=== PATIENT | female | born 1990 | race Caucasian/White ===

== ENCOUNTER 2019-12-30 05:34 | Inpatient (IN) | payer OTHER, SELFPAY ==
[2019-12-30] VITALS (239 sets, daily range): BP systolic 67–109; BP diastolic 36–73; PULSE 25–143; TEMP 36.2–36.7; O2SAT 86–100
[2019-12-30 06:45] LABS: Basophils Absolute Auto 0.1 K/mm3 (0.0-0.1); Basophils Percent Auto 0.8 % (0.2-1.2); Eosinophils Absolute Auto 0.4 K/mm3 (0-0.3); Eosinophils Percent Auto 2.8 % (0-4.4); Hematocrit 36.7 % (37.0-47.0); Hemoglobin 12.8 g/dL (12.0-15.0); Immature Granulocyte Absolute 0.37 K/mm3 (0.00-0.031); Immature Granulocyte Percent A 2.5 % (0-0.5); Lymphocytes Absolute Auto 2.47 K/mm3 (0.9-3.2); Lymphocytes Percent Auto 16.6 % (18.3-44.2); Mean Corpuscular HGB Conc 34.9 g/dl (32-36); Mean Corpuscular Hemoglobin 31.8 pg (26-34); Mean Corpuscular Volume 91.3 fl (80-100); Mean Platelet Volume 11.7 fl (7.4-10.4); Monocytes Absolute Auto 1.6 K/mm3 (0.1-0.6); Monocytes Percent Auto 10.7 % (2.6-8.5); Neutrophils Absolute Auto 9.9 K/mm3 (1.3-6.7); Neutrophils Percent Auto 66.6 % (45.5-73.1); Platelet Count Result 207 k/mm3 (150-375); Red Blood Count 4.02 M/mm3 (4.2-5.4); Red Cell Distribution Width 12.7 % (11.5-14.5); White Blood Count 14.9 K/mm3 (4.5-10.0)
--- NOTE | 2019-12-30 06:49 | PM.IMHP ---
H&P: HPI History of Present Illness Chief complaint: Induction of Labor Narrative: Ebony Mancilla is a 29 year old female whose last menstrual period was 03/30/2019, EDC is 01/04/2020, presents at 39 weeks gestation for induction of labor. She is negative for group B strep. Her has been uncomplicated Review of Systems Review of Systems: All systems reviewed & are unremarkable except as noted in HPI and below PMFSH Family History Family History Grandparent Diabetes mellitus Social History Social History Substance use: never Spiritual care concerns: No Meds Home Medications and Allergies Home Medications Medication Instructions Recorded Confirmed Type PNV cmb#95-ferrous fumarate-FA 1 tablet PO DAILY 12/13/19 12/13/19 History [] Allergies Allergy/AdvReac Type Severity Reaction Status Date / Time No Known Allergies Allergy Verified 12/13/19 15:13 Vital Signs Vital Signs - 24 hr 12/30/19 06:25 Pulse Rate 102 H Blood Pressure 103/71 Exam Const: General: no acute distress Eyes: General: appearance normal, both eyes and all related structures Neck: Neck: supple and no JVD Thyroid: thyroid normal Resp: Effort & Inspection: normal respiratory effort Auscultation: clear to auscultation bilaterally Cardio: Rate: regular rate Rhythm: regular rhythm GI: Inspection: normal to inspection (Gravid soft uterus) : General: Yes other (Cervix 3/75/2/. Attempted a round no fluid. FHTs reassuring) Skin: General skin exam: no rashes or lesions noted Extrem: General: normal to inspection and no edema Psych: Mental Status: mental status grossly normal Affect: normal affect Assessment and Plan Additional Plan Impression: Term with favorable cervix Plan: Medical induction of labor
[2019-12-30] MEDS: LACTATED RINGERS 1,000 ML 125 ML IV CONT ×3 (06:56→20:47)
[2019-12-30] MEDS: OXYTOCIN 30 UNITS/NS 500 ML 30 UNITS/500 ML BAG IV CONT (06:58)
[2019-12-30 07:36] LABS: HIV 1/2 Ab P24 Ag Result Negative (Negative)
[2019-12-30 07:56] LABS: Rapid Plasma Reagin Non-Reactive (NonReactive)
--- NOTE | 2019-12-30 09:28 | WPDANESEPPF ---
Anes - Initial Pre Proc Eval Date/Time: 12/30/19 09:28 Surgeon: Juan A Murray MD Pre Op Diagnosis: Induction of Labor Patient Data Age: 29 Gender: F Height: Weight: Last Vital Signs Temp 36.2 C L 12/30/19 08:35 Pulse 77 12/30/19 09:16 BP 92/56 L 12/30/19 09:16 Pulse Ox 99 12/30/19 09:27 Allergies Allergy/AdvReac Type Severity Reaction Status Date / Time No Known Allergies Allergy Verified 12/13/19 15:13 Home Medications Medication Instructions Recorded Confirmed Type PNV cmb#95-ferrous fumarate-FA 1 tablet PO DAILY 12/13/19 12/13/19 History [] Laboratory Tests 12/30/19 12/30/19 12/30/19 06:38 06:38 06:38 WBC 14.9 K/mm3 H K/mm3 (4.5-10.0) RBC 4.02 M/mm3 L M/mm3 (4.2-5.4) Hgb 12.8 g/dL g/dL (12.0-15.0) Hct 36.7 % L % (37.0-47.0) MCV 91.3 fl fl (80-100) MCH 31.8 pg pg (26-34) MCHC 34.9 g/dl g/dl (32-36) RDW 12.7 % % (11.5-14.5) Plt Count 207 k/mm3 k/mm3 (150-375) MPV 11.7 fl H fl (7.4-10.4) Immature Gran % (Auto) 2.5 % H % (0-0.5) Neut % (Auto) 66.6 % % (45.5-73.1) Lymph % (Auto) 16.6 % L % (18.3-44.2) [place] % (Auto) 10.7 % H % (2.6-8.5) Eos % (Auto) 2.8 % % (0-4.4) Baso % (Auto) 0.8 % % (0.2-1.2) Lymph # (Auto) 2.47 K/mm3 K/mm3 (0.9-3.2) [place] # (Auto) 1.6 K/mm3 H K/mm3 (0.1-0.6) Eos # (Auto) 0.4 K/mm3 H K/mm3 (0-0.3) Baso # (Auto) 0.1 K/mm3 K/mm3 (0.0-0.1) Abs Immat Gran (auto) 0.37 K/mm3 H K/mm3 (0.00-0.031) Absolute Neuts (auto) 9.9 K/mm3 H K/mm3 (1.3-6.7) Absolute Nucleated RBC 0.0 K/mm3 K/mm3 (0.0-0.012) Nucleated RBC % 0.0 % % (0.0-0.2) RPR Non-reactive (NonReactive) HIV 1&2 Ab/P24 Ag 4thGn Blood Type B Positive Antibody Screen Negative 12/30/19 06:38 WBC RBC Hgb Hct MCV MCH MCHC RDW Plt Count MPV Immature Gran % (Auto) Neut % (Auto) Lymph % (Auto) [place] % (Auto) Eos % (Auto) Baso % (Auto) Lymph # (Auto) [place] # (Auto) Eos # (Auto) Baso # (Auto) Abs Immat Gran (auto) Absolute Neuts (auto) Absolute Nucleated RBC Nucleated RBC % RPR HIV 1&2 Ab/P24 Ag 4thGn Negative (Negative) Blood Type Antibody Screen Patient hx anesthesia problems: none Family hx anesthesia problems: none [facility] Family History Family History Grandparent Diabetes mellitus Social History Social History Substance use: never Spiritual care concerns: No Anes - Eval Final PreProcedure Day of Procedure 12/30/19 09:28 Patient weight: overweight Neurological: alert and oriented ASA classification: II Emergent: no Anesthetic plan: proceed Anesthesia type and monitoring: regional epidural and standard monitoring Informed Consent: The patient's anesthetic plan and its attendant risks and benefits were discussed with the patient/family/POA. Questions were solicited and answers provided to the satisfaction of the patient/family/POA.
--- NOTE | 2019-12-30 09:41 | LDADM ---
This patient, Ebony Mancilla, was admitted to Labor/Delivery/Recovery 105 on 12/30/19 at 05:34. Plans for labor, pain management and were discussed with patient. Patient/S.O. oriented to hospital policies and general routines including ID bracelet, bed and alarms, visiting hours, pain management, procedures, bathroom and other care routines, personal items, smoking policy, room service/diet and guest tray routines, infant security routines, call light, and visiting hours. Patient/S.O. are encouraged to report perceived risks to care and to ask questions if they do not understand what they are told or what they should do. See OBIX for further documentation.
[2019-12-30] MEDS: SODIUM CHLORIDE 0.9% IV 300 ML 600 ML I-UTERINE (12:18)
--- NOTE | 2019-12-30 12:36 | P.PNOB_ITS ---
OB - PN: Subj Subjective Date/time seen: 12/30/19 12:36 Interval history: iupc placed fhts better w amnioinfusion OB - PN: Obj Data Labs CBC & Chem 7: 12/30/19 06:38 Labs: Laboratory Results - last 24 hr 12/30/19 12/30/19 12/30/19 06:38 06:38 06:38 WBC 14.9 H RBC 4.02 L Hgb 12.8 Hct 36.7 L MCV 91.3 MCH 31.8 MCHC 34.9 RDW 12.7 Plt Count 207 MPV 11.7 H Immature Gran % (Auto) 2.5 H Neut % (Auto) 66.6 Lymph % (Auto) 16.6 L [place] % (Auto) 10.7 H Eos % (Auto) 2.8 Baso % (Auto) 0.8 Lymph # (Auto) 2.47 [place] # (Auto) 1.6 H Eos # (Auto) 0.4 H Baso # (Auto) 0.1 Abs Immat Gran (auto) 0.37 H Absolute Neuts (auto) 9.9 H Absolute Nucleated RBC 0.0 Nucleated RBC % 0.0 RPR Non-reactive HIV 1&2 Ab/P24 Ag 4thGn Blood Type B Positive Antibody Screen Negative 12/30/19 06:38 WBC RBC Hgb Hct MCV MCH MCHC RDW Plt Count MPV Immature Gran % (Auto) Neut % (Auto) Lymph % (Auto) [place] % (Auto) Eos % (Auto) Baso % (Auto) Lymph # (Auto) [place] # (Auto) Eos # (Auto) Baso # (Auto) Abs Immat Gran (auto) Absolute Neuts (auto) Absolute Nucleated RBC Nucleated RBC % RPR HIV 1&2 Ab/P24 Ag 4thGn Negative Blood Type Antibody Screen OB - PN A/P Time Spent With Patient Time: Total time spent is greater than 50% in coordination of care (as documented) at patient's floor/unit and/or counseling patient:
[2019-12-30] MEDS: SODIUM CHLORIDE 0.9% IV 1,000 ML 150 ML I-UTERINE (12:41)
--- NOTE | 2019-12-30 16:22 | P.PNOB_ITS ---
OB - PN: Subj Subjective Date/time seen: 12/30/19 16:22 Interval history: cx4/80/-1 fhts better OB - PN: Obj Data Labs CBC & Chem 7: 12/30/19 06:38 Labs: Laboratory Results - last 24 hr 12/30/19 12/30/19 12/30/19 06:38 06:38 06:38 WBC 14.9 H RBC 4.02 L Hgb 12.8 Hct 36.7 L MCV 91.3 MCH 31.8 MCHC 34.9 RDW 12.7 Plt Count 207 MPV 11.7 H Immature Gran % (Auto) 2.5 H Neut % (Auto) 66.6 Lymph % (Auto) 16.6 L [place] % (Auto) 10.7 H Eos % (Auto) 2.8 Baso % (Auto) 0.8 Lymph # (Auto) 2.47 [place] # (Auto) 1.6 H Eos # (Auto) 0.4 H Baso # (Auto) 0.1 Abs Immat Gran (auto) 0.37 H Absolute Neuts (auto) 9.9 H Absolute Nucleated RBC 0.0 Nucleated RBC % 0.0 RPR Non-reactive HIV 1&2 Ab/P24 Ag 4thGn Blood Type B Positive Antibody Screen Negative 12/30/19 06:38 WBC RBC Hgb Hct MCV MCH MCHC RDW Plt Count MPV Immature Gran % (Auto) Neut % (Auto) Lymph % (Auto) [place] % (Auto) Eos % (Auto) Baso % (Auto) Lymph # (Auto) [place] # (Auto) Eos # (Auto) Baso # (Auto) Abs Immat Gran (auto) Absolute Neuts (auto) Absolute Nucleated RBC Nucleated RBC % RPR HIV 1&2 Ab/P24 Ag 4thGn Negative Blood Type Antibody Screen OB - PN A/P Time Spent With Patient Time: Total time spent is greater than 50% in coordination of care (as documented) at patient's floor/unit and/or counseling patient:
[2019-12-30] MEDS: ONDANSETRON INJ 4 MG/2 ML VIAL IV PUSH (17:36)
[2019-12-31] VITALS (49 sets, daily range): BP systolic 90–144; BP diastolic 50–71; PULSE 54–175; RESP 16–18; TEMP 36.8–37.4; O2SAT 69–100
[2019-12-31] MEDS: LACTATED RINGERS 1,000 ML 125 ML IV CONT (00:24)
--- NOTE | 2019-12-31 02:19 | PM.OBPRVD ---
OB - Delivery Note Procedure Delivery date: 12/31/19 Procedure: Patient pushed for a spontaneous vaginal delivery. The fetus was delivered atraumatically and placed on the maternal abdomen. The cord was clamped and cut after 1 minute of life. The cord was double clamped and cut and a segment of cord was collected for cord gases. Cord blood was collected for blood type and Coomb's testing. The placenta delivered spontaneously and was noted to be intact. The perineum was inspected and there was a 1st degree perineal laceration and bilateral labial lacerations. The left labial laceration was noted to be bleeding and was repaired with 3-0 vicryl in the usual fashion. The uterus was firm and good hemostasis was noted. The patient and fetus were stable in the delivery room. Intrapartal events: None Induction method: per pitocin protocol Delivery augmentation: rupture of membranes Delivery monitor: external FHT Route of delivery: Episiotomy description: None Laceration description: Labial (bilateral) Delivery repair: vicryl Specimen: No Estimated blood loss (mL): 250 Anesthesia type: Epidural Disposition: floor () Complications: No immediate complications [place] Baby Date of : 12/31/19 Time of : 02:06 Weeks of gestation at delivery: 39 Infant gender: Male Weight (pounds): 7 Weight (ounces): 5 presentation: vertex position: Right Occiput Anterior Placenta delivery description: Spontaneous cord vessel description: Around Body x1 score one minute: 3 score five minutes: 8
[2019-12-31] MEDS: IBUPROFEN 600 MG TABLET PO ×4 (02:36→23:12)
[2019-12-31] MEDS: OXYTOCIN 30 UNITS/NS 500 ML 30 UNITS/500 ML BAG 125 UNITS IV CONT (03:10)
[2019-12-31] MEDS: BENZOCAINE 20% AER SPR (*SP) 56 GM CAN 1 SPRAY TOPICAL (04:38)
[2019-12-31] MEDS: WITCH HAZEL 40 PADS 1 PAD TOPICAL (04:38)
--- NOTE | 2019-12-31 11:15 | PCDIET ---
Mother called out for assist with feeding. Mother reports infant has latched and nursed eagerly. Infant is now sleepy and not latching. was circumcised earlier this am. Discussed feeding freq and calling out if infant does not nurse by 4 hours from last feeding. Reviewed feeding cues, frequencies, duration of feedings, feeding elimination flow sheet, and signs of adequate intake. Demonstrated stimulation techniques to wake for feeding. easily awoken with feeding cues noted. Assisted with infant to breast. Reviewed positioning/alignment in cross cradle, holding breast in U hold and guided asymmetrical latch on. Discussed rational for each. was able to latch correctly. Infant nursed eagerly, with steady draws and frequent swallowing noted with pausing noted. Reviewed signs of a correct latch, effective nursing and suck swallow ratio. was able to maintain latch without discomfort to mother. Nipple care reviewed. Suggested mother stimulate while feeding to keep infant awake and nursing effectively for increased intake and assist maintaining deep latch. Instructed mother to call out for RN assistance if she is unable to latch infant for feeding or she has discomfort with nursing. Instructed feeding should be initiated three hours from start of last feeding or if feeding cues are noted before. Mother voiced understanding of information shared.
--- NOTE | 2019-12-31 11:36 | PM.OBPNVD ---
OB - PN: Subj Subjective Date/time seen: 12/31/19 11:36 Interval history: cx4/80/-1 fhts better Patient comments: no complaints, pain well controlled and tolerating diet [place] feeding status: exclusively breast feeding Narrative: patient doing well this AM. No complaints. Pain is well controlled. She reports minimal bleeding. She is ambulating and voiding without difficulty. She is tolerating PO. She denies N/V, fever, chills. OB - PN: Obj Data Labs CBC & Chem 7: 12/30/19 06:38 OB - PN A/P Plan day: 1 Plan: routine care Comments: patient doing well H/H stable continue routine care Time Spent With Patient Time: Total time spent is greater than 50% in coordination of care (as documented) at patient's floor/unit and/or counseling patient: Time with patient: less than 15 minutes Review of Systems Review of Systems: All systems reviewed & are unremarkable except as noted in HPI and below Exam Const: General: comfortable and no acute distress Resp: Effort & Inspection: normal respiratory effort Cardio: Rate: regular rate GI: GI Palp: Yes Soft to palpation and No Tenderness to palpation present (GI) Auscultation: normal bowel sounds Other: fundus firm and below umbilicus. Psych: Affect: normal affect
[2019-12-31] MEDS: MULTIVIT/MIN/PREN/FOL AC/IRON TABLET 1 TAB PO (11:37)
[2019-12-31] MEDS: TETANUS,DIPHTHERIA,AC PERTUSSIS ADULT (0.5 ML) BOOSTRIX IM (11:38)
[2020-01-01 04:38] LABS: Hematocrit 33.4 % (37.0-47.0); Hemoglobin 11.1 g/dL (12.0-15.0)
--- NOTE | 2020-01-01 07:52 | P.DS_ITS ---
OB - DS: Summary OB Procedures : None OB Procedures Intrapartum: Spontaneous Vag Delivery OB Procedures: : None Status at Discharge Functional status at discharge: independent ambulation Overall status at discharge: patient is back to baseline Time Spent with Patient Time attestation: Total time spent providing and/or coordinating discharge services: Time spent: Less than 30 minutes Exam Const: General: comfortable and no acute distress Resp: Effort & Inspection: normal respiratory effort Auscultation: clear to auscultation bilaterally Cardio: Rate: regular rate GI: GI Palp: Yes Soft to palpation Auscultation: normal bowel sounds Other: Fundus firm below umbilicus Psych: Appearance: grossly normal Mental Status: mental status grossly normal Affect: normal affect DS: Data Data Completed and Pending Labs on day of discharge: Labs from last 24 hours 01/01/20 04:21 Hgb 11.1 L Hct 33.4 L Discharge Plan Discharge Discharging Clinician: Isidro Davis Patient Disposition: Home, Self-Care Activity: as tolerated and pelvic rest Diet: regular Discharge Instructions: call or return for temperature >100.4, bleeding >2 pads/hr for 2 hrs, pain not controlled with medications, signs/symptoms of mastitis Patient Instructions: How to Stop Smoking (ED), Antibiotic Form Stand Alone Forms: General Discharge Information Follow-up/Referrals: Juan A Murray MD [Physician] - Discharge Medications: New acetaminophen [Mapap (acetaminophen)] 325 mg Tablet 650 mg PO Q6H PRN (Reason: Mild Pain (1-3) Or Headache) Qty: 30 RF: 0 ibuprofen 600 mg Tablet 600 mg PO Q6H PRN (Reason: Cramping) Qty: 30 RF: 0 Aty-I-Goasom Cream 1 applic topical PRN PRN (Reason: Sore Nipples) Qty: 1 RF: 0 Continued PNV cmb#95-ferrous fumarate-FA [] 28 mg iron- 800 mcg Tablet 1 tablet PO DAILY RF: 0 Date of admission: 12/30/19 05:34 Primary Care Provider: PHYSICIAN,EPIC CADENCE ANALYST Admitting Provider: Juan A Murray Attending physician on admission: Juan A Murray
--- NOTE | 2020-01-01 08:11 | WPDANLDPN2 ---
Anes-Prog Note L&D Date/Time: 01/01/20 08:11 Comfortable throughout: labor and delivery Neuraxial method: epidural Epidural/Spinal procedure site: clean & non-tender Neuro status: Neuro function grossly intact. Cardiovascular status: normal Respiratory status: normal Airway patency: baseline Mental status: baseline Post-Op hydration status: normal Vital Signs: Last Vital Signs Temp 36.8 C 12/31/19 18:43 Pulse 54 L 12/31/19 18:43 Resp 18 12/31/19 18:43 BP 100/66 12/31/19 18:43 Pulse Ox 97 12/31/19 18:43 Post-procedural complaints: none Patient feedback: Patient satisfied with anesthetic care.
[2020-01-01 08:44] VITALS: BP 111/72; PULSE 78; RESP 16; TEMP 36.6; O2SAT 96
[2020-01-03 09:13] VITALS: BP 113/72; PULSE 93; RESP 20
== END 2020-01-01 11:23 | disposition home or self-care (01) | DRG 560 ==
LOC: ANHLDR 11:54 → ANHOB2 12-31 11:29 → ANHLDR 01-04 13:41 → ANHOB2 01-04 13:41
PROVIDERS: Admitting Provider Obstetrics & Gynecology; Visit Provider Student in an Organized Health Care Education/Training Program
DX: O69.82X0 Labor and delivery complicated by other cord entanglement, without compression, not applicable or unspecified (principal); Z37.0 Single live birth; Z3A.39 39 weeks gestation of pregnancy; O36.8330 Maternal care for abnormalities of the fetal heart rate or rhythm, third trimester, not applicable or unspecified; O71.82 Other specified trauma to perineum and vulva; O99.334 Smoking (tobacco) complicating childbirth; F17.210 Nicotine dependence, cigarettes, uncomplicated
CPT/HCPCS: 36415; 85014; 85018; 85025; 86592; 86703; 86850; 86900; 86901; 90715; A9270; G0432; J2405; J2590; J2795; J7030; J7120